=== PATIENT | female | born 1985 | race African-American/Black ===

== ENCOUNTER 2016-06-06 02:05 | Outpatient (CLI) | payer MEDICAID ==
[2016-09-28] MEDS ORDERED: MOTRIN-DPS800 MG PO (09:24)
== END 2016-06-06 04:05 | disposition home or self-care (01) ==
LOC: BC 02:05 → 2LDRP 02:05 → BC 04:05
DX: O99.89 Other specified diseases and conditions complicating pregnancy, childbirth and the puerperium (principal); W19.XXXA Unspecified fall, initial encounter; Y09 Assault by unspecified means; Z3A.23 23 weeks gestation of pregnancy

== ENCOUNTER 2016-07-25 23:05 | Outpatient (CLI) | payer MEDICAID ==
[2016-09-28] MEDS ORDERED: MOTRIN-DPS800 MG PO (09:24)
== END 2016-07-26 00:40 | disposition home or self-care (01) ==
LOC: BC 23:05 → 2LDRP 23:05 → BC 07-26 00:40
DX: O99.89 Other specified diseases and conditions complicating pregnancy, childbirth and the puerperium (principal); R10.2 Pelvic and perineal pain; Z3A.30 30 weeks gestation of pregnancy

== ENCOUNTER 2016-11-27 15:26 | Emergency (ER) | payer MEDICAID ==
[~2016-11-27 15:26] MED LIST: MOTRIN-DPS800 MG PO
--- NOTE | 2016-11-30 12:08 | ER ---
ADMIT: 11/27/2016 RM/LOC: [facility] MR#: [id number] [place] [id number] XOCHILT GARZA [address] [place] [address] Emergency Room Report SEX: F AGE: 31 : 1985 DATE: 11/27/2016 SUBJECTIVE: This is a 31-year-old female, who presents to the emergency room with her family complaining of abdominal pain, left lower quadrant and she says it radiates up to her left flank. She calls it severe, but while she is in the emergency room, she is pretty comfortable. She is holding her baby, and her son and are in the room. She also tells me that she has had some headache on and off and some nausea. PAST MEDICAL HISTORY: She has had a past medical history of: 1. Bladder infections. 2. UTIs. 3. No surgery. 4. Had a baby recently, but is not . PHYSICAL EXAMINATION: VITAL SIGNS: Her blood pressure is 139/89 with a heart rate of 72, respirations 18, temperature is 97.2, O2 sats 100%. GENERAL: Mildly anxious. ABDOMEN: Left lower quadrant radiating up to the left flank. BACK: Normal inspection. No CVA tenderness. HEENT: Normal inspection. NECK: Supple. RESPIRATIONS: No distress. EXTREMITIES: Nontender. No edema. SKIN: Good color and turgor. NEURO: Oriented x4. PSYCH: Mood and affect appropriate. PELVIS: No pelvic exam was done at this time. She did deliver her baby vaginally without any problems. On labs, she has some leukocytes trace in the urine and test is negative. Because ADMIT: 11/27/2016 RM/LOC: [facility] MR#: [id number] [address] [id number] XOCHILT GARZA [facility] [place] [address] Emergency Room Report SEX: F AGE: 31 : 1985 she is not breast-feeding, I went ahead and gave her a shot of Toradol which she said it was helpful. The pain stopped. I am beginning to think that she might have had a small stone that was passed when she was asked to get a sample of urine and at this point, she has no more pain. IMPRESSION: 1. Flank pain. 2. Left lower quadrant abdominal pain, resolved. The patient was discharged and advised to follow up with primary provider with the use of Motrin 800 mg for pain control while at home. CAROL Maravilla / Ephraim Rivera MD / kortney JOB #: [id number] CC: Ephraim Rivera MD, Attending Physician Junior Pratt MD, Family Physician
== END 2016-11-27 17:55 | disposition home or self-care (01) ==
LOC: ER 15:26
DX: R10.32 Left lower quadrant pain (principal); Z87.440 Personal history of urinary (tract) infections